=== PATIENT | male | born 1980 | race Caucasian/White ===

== ENCOUNTER 2017-10-03 20:39 | Emergency (ER) | payer OTHER ==
[~2017-10-03] VITALS: Ht 180.3 cm; Wt 136.1 kg
[~2017-10-03 20:39] MED LIST: ACETAMINOPHEN-1 EAC1; AMOXICILLIN 50500 M1; ASPIRIN325 PO; BACTRIM DS TAB1 EACH PO; CARAFATE 1 GM TA1 G1 PO; IBUPROFEN 800800 M1 PO; LISINOPRIL10 MG PO; NORCO 5-325 TA1 EACH PO; PERCOCET 5-3251 EACH PO
[2017-10-03 21:22] LABS: ABSOLUTE BASOPHILS 0.1 thou/uL (0.0-0.2); ABSOLUTE EOSINOPHILS 0.2 thou/uL (0.0-0.7); ABSOLUTE MONOCYTES 0.8 thou/uL (0.0-1.2); BASOPHILS 0.7 %; EOSINOPHILS 1.6 %; HEMATOCRIT 52.7 % (42.0-52.0); HEMOGLOBIN 18.3 gm/dL (14.0-18.0); LYMPHOCYTES 23.1 %; MCH 30.9 pg (26.0-34.0); MCHC 34.7 g/dL (28.0-37.0); MCV 89.1 fL (80.0-100.0); NUCLEATED RBCS 0 /100WBC; PLATELET COUNT* 234 thou/uL (150-400); POLYS 68.6 %; RBC 5.92 mil/uL (4.50-6.00); RDW-CV 13.6 % (10.5-14.5); WBC 13.1 thou/uL (4.0-11.0)
[2017-10-03 21:26] LABS: CALCIUM 8.8 mg/dL (8.5-10.1); CREATININE 1.1 mg/dL (0.6-1.3); POTASSIUM 4.1 mmol/L (3.5-5.1)
[2017-10-03 21:29] LABS: APTT 32.4 Seconds (25.0-31.3); INR 1.1; PROTIME 10.6 Seconds (9.20-11.50)
[2017-10-03 21:31] LABS: ALBUMIN 3.8 g/dL (3.4-5.0); TOTAL BILIRUBIN 0.6 mg/dL (<0.1-1.0); TOTAL PROTEIN 7.7 g/dL (6.4-8.2)
[2017-10-03] MEDS ORDERED: FLEXERIL PO (23:27)
[2017-10-03] MEDS ORDERED: NORCO 5-325 TA1 EAC1 PO (23:27)
[2017-10-03 23:42] VITALS: BP 163/95
== END 2017-10-03 23:46 | disposition home or self-care (01) ==
LOC: M.ERS 20:39
PROVIDERS: Physician Assistant
DX: S16.1XXA Strain of muscle, fascia and tendon at neck level, initial encounter (principal); I16.0 Hypertensive urgency; G43.909 Migraine, unspecified, not intractable, without status migrainosus; I10 Essential (primary) hypertension; F17.210 Nicotine dependence, cigarettes, uncomplicated; Z90.89 Acquired absence of other organs; X50.1XXA Overexertion from prolonged static or awkward postures, initial encounter; Y93.89 Activity, other specified; Y92.89 Other specified places as the place of occurrence of the external cause; Y99.8 Other external cause status